=== PATIENT | female | born 1975 | race African-American/Black ===

== ENCOUNTER 2025-01-15 08:58 | Emergency (ER) | payer MEDICAID ==
[~2025-01-15] VITALS: Ht 165.1 cm; Wt 85.0 kg
[2025-01-15 09:00] VITALS: O2SAT 97
[2025-01-15] MEDS: IBUPROFEN 600MG TABLET PO ONE (09:45)
[2025-01-15 11:27] VITALS: BP 132/86; PULSE 84; RESP 18; TEMP 37.2; O2SAT 98
== END 2025-01-15 11:36 | disposition home or self-care (01) ==
LOC: ER 09:17
DX: S82.841A Displaced bimalleolar fracture of right lower leg, initial encounter for closed fracture (principal); Z88.2 Allergy status to sulfonamides; X50.1XXA Overexertion from prolonged static or awkward postures, initial encounter; Y93.89 Activity, other specified; Y92.89 Other specified places as the place of occurrence of the external cause; Y99.8 Other external cause status
CPT/HCPCS: 27810; 73610; 99284; A6449